=== PATIENT | female | born 1980 | race Two or more races ===

== ENCOUNTER 2018-01-29 05:39 | Day surgery (SDC) | payer BC ==
[~2018-01-29] VITALS: Ht 157.5 cm; Wt 60.0 kg
[~2018-01-29 05:39] MED LIST: No meds per pt.
[2018-01-29] MEDS ORDERED: LACTATED RINGERS 1,000 ML IV SCH (06:11)
[2018-01-29] MEDS ORDERED: CEFAZOLIN 1,000 MG ONE ×2 (06:59)
[2018-01-29] MEDS ORDERED: PROPOFOL 10 MG/ML, 20ML ONE (06:59)
[2018-01-29] MEDS ORDERED: ROCURONIUM 10MG/ML,5ML ONE (06:59)
[2018-01-29] MEDS ORDERED: BUPIVACAINE/PF 0.25% ONE (07:00)
[2018-01-29] MEDS ORDERED: ONDANSETRON ODT 8 MG ONE ×2 (07:00)
[2018-01-29] MEDS ORDERED: KETOROLAC 30 MG/1 ML ONE (07:00)
[2018-01-29] MEDS ORDERED: DEXAMETHASONE 4 MG/ML, 1ML ONE ×2 (07:00)
[2018-01-29] MEDS ORDERED: THROMBIN 5,000 UNIT VIAL TP ONE (07:00)
[2018-01-29] MEDS ORDERED: NEOMY/POLYMYXIN B GU IRR. 1 ML IRRIG ONE (07:01)
[2018-01-29] MEDS ORDERED: MIDAZOLAM 1 MG/ML, 2ML ONE (07:04)
[2018-01-29] MEDS ORDERED: FENTANYL PF 1000 MCG/20ML ONE (07:04)
[2018-01-29] MEDS ORDERED: FENTANYL PF 100 MCG/2ML ONE ×3 (07:05→08:35)
[2018-01-29] MEDS ORDERED: SCOPOLAMINE PATCH, 1.5MG PATCH.TD72 TD ONE ×2 (07:21→07:30)
[2018-01-29] MEDS ORDERED: ACETAMINOPHEN 500 MG TABLET ONE (07:22)
[2018-01-29] MEDS ORDERED: GLYCOPYRROLATE 0.2MG/1ML, 5ML ONE (07:24)
[2018-01-29] MEDS ORDERED: PHENYLEPHRINE 10 MG/ML ONE (07:24)
[2018-01-29] MEDS ORDERED: ONDANSETRON ODT 8 MG PO ONE (07:30)
[2018-01-29] MEDS ORDERED: ACETAMINOPHEN 500 MG TABLET PO ONE (07:30)
[2018-01-29] MEDS ORDERED: PROMETHAZINE 12.5 MG SUPP PR PRN (08:30)
[2018-01-29] MEDS ORDERED: OXYcodone 5 MG/5 ML ORAL.SOL UDC PO PRN (08:30)
[2018-01-29] MEDS ORDERED: FENTANYL PF 100 MCG/2ML IV PRN (08:30)
[2018-01-29] MEDS ORDERED: HYDROmorphone 1 MG/ML, 1ML IV PRN (08:30)
[2018-01-29] MEDS ORDERED: NEOSTIGMINE 1 MG/ML, 10ML ONE (09:14)
[2018-01-29] MEDS ORDERED: MEPERIDINE/PF 50 MG/ML ONE (09:42)
[2018-01-29] MEDS: MEPERIDINE/PF 25MG/0.5ML IVPush PRN ×2 (09:42→09:53)
[2018-01-29] MEDS ORDERED: OXYcodone 5 MG/5 ML ORAL.SOL UDC ONE (09:43)
[2018-01-29] MEDS ORDERED: PROMETHAZINE 12.5 MG SUPP PR ONE (13:00)
[2018-01-29] MEDS ORDERED: OXYcodone/APAP 5/325MG TABLET PO PRN (13:30)
[2018-01-29] MEDS ORDERED: EPHEDRINE 50 MG/ML, 1ML ONE (15:45)
[2018-01-29] MEDS ORDERED: hydrOXYzine 25 MG/ML IM ONE (16:00)
[2018-01-29] MEDS ORDERED: EPHEDRINE 50 MG/ML, 1ML IM ONE (16:00)
== END 2018-01-29 16:25 ==
LOC: OUT 05:39
PROVIDERS: ATTEND Specialist
DX: N94.6 Dysmenorrhea, unspecified (principal); N80.0 Endometriosis of uterus; K21.0 Gastro-esophageal reflux disease with esophagitis
CPT/HCPCS: 58571; 81025; 88307; J0690; J1100; J1885; J2175; J2250; J2370; J2704; J2710; J3010; J3410; J3490; J7120; Q0162; S2900